=== PATIENT | male | born 1940 | race Caucasian/White ===

== ENCOUNTER 2019-02-14 14:30 | Outpatient (RCR) | payer MEDICARE, OTHER ==
[2019-01-04 13:15] VITALS: BP 130/30
[2019-01-17 14:17] VITALS: BP 130/42
[2019-01-17 15:11] VITALS: BP 143/60
[2019-01-19 14:30] VITALS: BP 142/58
[2019-01-19 15:45] VITALS: BP 140/60
[2019-01-24 14:30] VITALS: BP 142/60
[2019-01-24 15:50] VITALS: BP 122/52
[2019-01-26 14:00] VITALS: BP 130/52
[2019-01-26 15:11] VITALS: BP 148/58
[2019-01-31 14:30] VITALS: BP 120/62
[2019-01-31 15:50] VITALS: BP 120/68
[2019-02-07 14:15] VITALS: BP 142/60
[2019-02-07 15:20] VITALS: BP 170/60
[2019-02-09 14:20] VITALS: BP 134/62
[2019-02-09 15:20] VITALS: BP 140/62
[~2019-02-14] VITALS: Ht 182.9 cm; Wt 145.2 kg
[2019-02-14 14:25] VITALS: BP 120/60
[~2019-02-14 14:30] MED LIST: AC325T PO; ACHD5005 PO; ALDACTONE25 MG PO; ASPI-587 PO; ATOR40TA70 PO; AZTH250C PO; BUME2TAB3 PO; CALCIUM + D PO; CARV12.5 PO; CEFD300C PO; DIAZ5TAB3 PO; GUAI-555 PO; INSU100V5 SQ; LANS30CA PO; LD5PT TOP; LORA10TA7 PO; METFOR850T PO; MULT-974 PO; OXYC5TAB71 PO; POTA20TA15 PO; SENN-1 PO; SITA100T PO; TMSL.4C PO
[2019-02-14 15:20] VITALS: BP 130/70
[2019-02-16 14:15] VITALS: BP 132/60
[2019-02-16 15:24] VITALS: BP 140/50
[2019-02-21 14:15] VITALS: BP 140/68
[2019-02-28 14:25] VITALS: BP 134/62
[2019-02-28 15:24] VITALS: BP 118/58
[2019-03-02 14:30] VITALS: BP 140/60
[2019-03-02 15:32] VITALS: BP 150/50
[2019-03-09 14:30] VITALS: BP 130/50
[2019-03-09 16:41] VITALS: BP 128/60
[2019-03-16 14:11] VITALS: BP 150/60
[2019-03-16 15:22] VITALS: BP 132/64
[2019-04-04 14:15] VITALS: BP 140/70
[2019-04-04 15:05] VITALS: BP 139/60
[2019-04-06 14:20] VITALS: BP 140/80
[2019-04-06 15:30] VITALS: BP 140/70
== END 2019-04-04 | disposition home or self-care (01) ==
LOC: PULM 14:30
PROVIDERS: ATTEND Internal Medicine Pulmonary Disease
DX: J44.9 Chronic obstructive pulmonary disease, unspecified (principal); I25.119 Atherosclerotic heart disease of native coronary artery with unspecified angina pectoris
CPT/HCPCS: 99211

== ENCOUNTER 2019-04-11 15:20 | Outpatient (RCR) | payer MEDICARE, OTHER ==
[2019-04-11 14:30] VITALS: BP 150/60
[2019-04-11 15:22] VITALS: BP 150/70
[2019-04-18 14:30] VITALS: BP 140/70
[2019-04-18 15:22] VITALS: BP 130/60
[2019-04-27 14:30] VITALS: BP 170/50
[2019-04-27 15:20] VITALS: BP 140/68
[2019-05-23 14:30] VITALS: BP 150/50
[2019-05-23 15:40] VITALS: BP 120/50
[2019-05-25 14:15] VITALS: BP 132/60
[2019-05-25 15:12] VITALS: BP 130/60
[2019-05-30 14:20] VITALS: BP 128/58
[2019-05-30 14:57] VITALS: BP 120/50
== END 2019-07-10 | disposition home or self-care (01) ==
LOC: PULM 15:20
PROVIDERS: ATTEND Internal Medicine Pulmonary Disease
DX: J44.9 Chronic obstructive pulmonary disease, unspecified (principal); I25.119 Atherosclerotic heart disease of native coronary artery with unspecified angina pectoris

== ENCOUNTER 2020-07-09 10:54 | Outpatient (RCR) | payer MEDICARE, OTHER ==
[~2020-07-09] VITALS: Ht 182.9 cm; Wt 148.0 kg
[2020-07-09 13:09] VITALS: BP 132/60
== END 2020-10-07 | disposition home or self-care (01) ==
LOC: PULM 10:54
PROVIDERS: ATTEND Internal Medicine
DX: J44.9 Chronic obstructive pulmonary disease, unspecified (principal); G47.33 Obstructive sleep apnea (adult) (pediatric); F51.01 Primary insomnia; E66.01 Morbid (severe) obesity due to excess calories
CPT/HCPCS: G0463 ×2; 99211